=== PATIENT | female | born 1960 | race Caucasian/White ===

== ENCOUNTER 2016-10-17 09:18 | Day surgery (SDC) | payer MEDICARE ==
--- NOTE | ~2016-10-17 | EGD ---
EGD REPORT [facility] [address] [place] [address] NAME: ELLA STROUD : 60 STATUS : REG [facility] [place] PAT#: [id number] AGE: 55 ADM/REG DATE : 10/17/16 MR#: [id number] REPORT SERV DATE: 10/17/16 DICTATED BY: ARIANA PETERSON DATE: 10/17/16 REPORT STATUS : Draft [facility] DATE: 10/17/16 [facility] Patient Name: Ella Stroud Date of : 1960 Attending MD: ARIANA PETERSON MD Procedure Date No Time: 10/17/2016 Procedure: Colonoscopy Indications: Screening in patient at increased risk: Colorectal cancer in sister before age 60, This is the patient's first colonoscopy Referring MD: SHAMIR MASSEY Medicines: See the Anesthesia note for documentation of the administered medications Complications: No immediate complications. Procedure: Pre-Anesthesia Assessment: - ASA Grade Assessment: III - A patient with severe systemic disease. After I obtained informed consent, the scope was passed under direct vision. Throughout the procedure, the patient's blood pressure, pulse, and oxygen saturations were monitored continuously. The PCF [id number] was introduced through the anus and advanced to the terminal ileum, with identification of the appendiceal orifice and IC valve. The patient tolerated the procedure well. The colonoscopy was technically difficult and complex due to Fixed sigmoid colon. The patient tolerated the procedure well. The quality of the bowel preparation was adequate. Findings: The perianal and digital rectal examinations were normal. Diverticula were found in the sigmoid colon. Internal hemorrhoids were found during retroflexion and were small. Diverticula were found in the cecum. Impression: - Diverticulosis in the sigmoid colon. - Internal hemorrhoids. - Diverticulosis in the cecum. Recommendation: - Patient has a contact number available for emergencies. The signs and symptoms of potential delayed complications were discussed with the patient. Return to normal activities tomorrow. Written discharge instructions were provided to the patient. - Regular diet. EGD REPORT [address] [address] NAME: ELLA STROUD : 60 STATUS : REG [facility] [place] PAT#: [id number] AGE: 55 ADM/REG DATE : 10/17/16 MR#: [id number] REPORT SERV DATE: 10/17/16 DICTATED BY: ARIANA PETERSON DATE: 10/17/16 REPORT STATUS : Draft TRANSCRIBED BY: [facility] DATE: 10/17/16 - Continue present medications. - Repeat colonoscopy in 5 years for screening purposes. Procedure Code(s): --- Professional --- 51616, Colonoscopy, flexible, proximal to splenic flexure; diagnostic, with or without collection of specimen(s) by brushing or washing, with or without colon decompression (separate procedure) Diagnosis Code(s): --- Professional --- K64.8, Other hemorrhoids K57.30, Diverticulosis of large intestine without perforation or abscess without bleeding Z12.11, Encounter for screening for malignant neoplasm of colon Z80.0, Family history of malignant neoplasm of digestive organs CPT copyright 2013 [employer]. All rights reserved. The codes documented in this report are preliminary and upon fur glazer review may be revised to meet current compliance requirements. Ariana Peterson MD ARIANA PETERSON MD 10/17/2016 10:50 AM This report has been signed electronically. Number of Addenda: 0 Note Initiated On: 10/17/2016 10:25 AM Scope Withdrawal Time 0 hours 7 minutes 44 seconds [address] [place] [address]
[~2016-10-17 09:18] MED LIST: ADVIL PM PO; AMIT25 PO; COMBIVENT RESPIM4 GM INH; FISH-EPA1000 MG PO; HABIT7 TOP; HAIR SKIN PO; IRON TAB PO; KEPPRA500 PO; KLONO5 PO; LIPITOR10 PO; LOFIB160 PO; METHOC750B PO; MULTIPLE VIT PO; NORCO1 TA1 PO; PRILO PO; SINGULAIR1 PO; ZANTAC150 MG PO
== END 2016-10-17 23:59 | disposition home or self-care (01) ==
LOC: DMU 09:18
PROVIDERS: Internal Medicine Gastroenterology
PROC: 0DJ08ZZ Inspection of Upper Intestinal Tract, Via Natural or Artificial Opening Endoscopic (ICD-10-PCS; principal; 2016-10-17 10:30)
DX: Z12.11 Encounter for screening for malignant neoplasm of colon (principal); K64.8 Other hemorrhoids; K57.30 Diverticulosis of large intestine without perforation or abscess without bleeding; Z80.0 Family history of malignant neoplasm of digestive organs; E78.00 Pure hypercholesterolemia, unspecified; M19.90 Unspecified osteoarthritis, unspecified site; J44.9 Chronic obstructive pulmonary disease, unspecified; F41.9 Anxiety disorder, unspecified; K21.9 Gastro-esophageal reflux disease without esophagitis; R13.10 Dysphagia, unspecified; F03.90 Unspecified dementia, unspecified severity, without behavioral disturbance, psychotic disturbance, mood disturbance, and anxiety; Z98.890 Other specified postprocedural states; Z87.891 Personal history of nicotine dependence; Z79.899 Other long term (current) drug therapy